=== PATIENT | female | born 1995 | race Caucasian/White ===

== ENCOUNTER 2019-09-17 09:14 | Day surgery (SDC) | payer OTHER, SELFPAY ==
[2019-08-26 09:38] VITALS: BMI 37.8
[2019-09-17 09:39] VITALS: BP 147/67; PULSE 86; RESP 16; TEMP 37.1; O2SAT 100; BMI 39.6
[2019-09-17 09:44] LABS: Internal QC Validated? YES +Cl - CLEAR BKGD; Pregnancy, Urine Negative Negative
[2019-09-17] MEDS: Lactated Ringers 1,000 ML 100 ML IV ×2 (09:48→11:01)
--- NOTE | 2019-09-17 10:08 | DCINST_ITS ---
Discharge Diet: No Restrictions - Toe-touch weightbearing right lower extremity, keep incision clean dry and intact and follow-up on Sunday for dressing change and brace adjustment with [facility]?call for appointment, keep brace locked in extension during ambulation and at night, may flex knee 0 to 30 degrees only for the first 2 weeks, call with concerns Discharge Activity: May Not Drive May shower in (days): 1 Ice area for (Minutes): 20 - Every hour while awake. Weight Bearing Status: Weight bearing as tolerated Keep extremity elevated above heart level: Operative Extremity Call your doctor if your incision/area has: Continuous Slow Oozing, Sudden Increased Bleeding, Increased Pain/ Swelling, Increased Redness, Foul Smelling Discharge Call your doctor if you observe: Fever of 101 or Higher, Coldness, Increased Pain, Numbness or Tingling, Change in Color, Calf discomfort Allergies/Adverse Reactions: Allergies No Known Allergies Allergy (Verified 09/17/19 09:38) Medications to take at Discharge fluticasone propionate 50 mcg/actuation nasal spray,suspension 1 spray INTRANASAL DAILY PRN 10/08/18 loratadine 10 mg tablet 10 mg PO DAILY 10/08/18 norethindrone acetate 1 mg-ethinyl estradiol 20 mcg tablet 1 tab PO DAILY 10/08/18 diclofenac potassium 25 mg capsule 2 tab PO PRN PRN 08/26/19 pantoprazole 40 mg tablet,delayed release 20 mg PO DAILY 08/26/19 Dicyclomine HCl 10 mg PO DAILY 09/10/19 Hydrocodone Bitart/Apap 5-325 [[place] 5MG-325MG] 1 - 2 tab PO Q6H PRN PRN 5 Days #60 tab 09/17/19 The following prescriptions were given: Hydrocodone Bitart/Apap 5-325 [[place] 5MG-325MG] 1 - 2 tab PO Q6H PRN PRN 5 Days #60 tab PRN Reason: Pain Transmission Status: Received by [facility] Primary Care Physician: Abdulkadir Reyes MD [Primary Care Provider] - Test Results: Test results from this visit will be discussed in further detail at your follow- up appointment, if applicable. Please Follow Up With: Fernanda Chung, - [phone]
--- NOTE | 2019-09-17 10:09 | PCM.HP.BLA ---
History and Physical I have re-examined the patient. There are no clinical changes since date of exam. Addendum entered and electronically signed by Fernanda Chung DO 08/26/19 12:49: Please note did discuss COVID risks with patient and patient elected to proceed with surgery. Also discussed the fact that I have not been tested for COVID and there is always a risk that I am carrying the virus asymptomatically without knowing. Assessment & Plan Problems 1. Tear of lateral meniscus of right knee, current, unspecified tear type, subsequent encounter S83.281D 2. 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 Fernanda Chung DO Spoke with the patient about the surgery procedure and recovery. Spoke with her about the difference in recovery with a mensicus repair vs mensicectomy. Reviewed the pre-operative plans with the patient. Risks and benefits of the procedure were fully explained, including but not limited to infection, neurovascular injury, continued pain, arthritis, stiffness, need for further surgery, re-injury, DVT, PE, general risks of anesthesia, and loss of limb or life. The patient understands all the risks and does wish to proceed with written consent. Follow up for her 2 week post op appt or sooner if pain, swelling, numbness or associated symptoms, or concerns develop. All questions answered. Patient in agreement of plan. Intake Intake Visit Reasons: Right knee Is patient in pain?: Yes Allergies No Known Allergies Allergy (Verified 08/26/19 09:43) Medications fluticasone propionate 50 mcg/actuation nasal spray,suspension 1 spray INTRANASAL DAILY 10/08/18 [History Confirmed 10/08/18] loratadine 10 mg tablet 10 mg PO DAILY 10/08/18 [History Confirmed 10/08/18] norethindrone acetate 1 mg-ethinyl estradiol 20 mcg tablet 1 tab PO DAILY 10/08/18 [History Confirmed 10/08/18] diclofenac potassium 25 mg capsule 25 mg PO BID 08/26/19 [History Confirmed 08/26/19] pantoprazole 40 mg tablet,delayed release 40 mg PO DAILY 08/26/19 [History Confirmed 08/26/19] [facility] Medical History (Updated 10/08/18 @ 08:35 by Georgina Barba) Heart murmur (Chronic) Broken arm (Resolved) umbilical stump removal (Resolved) Surgical History (Updated 10/08/18 @ 08:35 by Georgina Barba) H/O adenoidectomy (Resolved) History of tonsillectomy (Resolved) HPI Right knee: Details: Parts of this documentation were recorded by a scribe, this documentation accurately reflects the service provided and the decisions made by me, Dr. Fernanda Chung, DO 08/26/19 0967. JESENIA MARCH is a 24 year old F here today for right knee. Patient notes that she has increased right knee pain. Patient notes that she has been walking more frequently. She denies any recent injury. Patient complains of pain over her lateral knee and over her anterior knee. She has popping into her knee. She denies any locking. Patient denies any instability. She has increased pain with prolonged flexion, or squatting. She has a knee brace which is helpful. Patient had an MRI on 08/28/18 which is here for review. She would like to discuss her options with surgery. ROS [facility] Reports joint pain, Reports joint swelling, Reports limited joint movement Skin/Breast Reports system reviewed and no additional complaints, except as docu Neuro Yes system reviewed and no additional complaints, except as docu Ortho Exam Right Knee Skin/Wound: Yes CDI, Yes swelling Examination: Yes Lat jt line tenderness, Yes Pain with flexion Assessment & Plan Problems 1. Tear of lateral meniscus of right knee, current, unspecified tear type, subsequent encounter S83.219D 2. 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 Spoke with her about the difference in recovery with a mensicus repair vs mensicectomy. Reviewed the pre-operative plans with the patient. Risks and benefits of the procedure were fully explained, including but not limited to infection, neurovascular injury, continued pain, arthritis, stiffness, need for further surgery, re-injury, DVT, PE, general risks of anesthesia, and loss of limb or life. The patient understands all the risks and does wish to proceed with written consent. Follow up for her 2 week post op appt or sooner if pain, swelling, numbness or associated symptoms, or concerns develop. All questions answered. Patient in agreement of plan. 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
--- NOTE | 2019-09-17 10:10 | PCM.OPRPT ---
Report of Operation Date of Procedure: 09/17/19 Pre-Operative Diagnosis: right knee lateral meniscus tear Post-Operative Diagnosis: same Surgery/Procedure Performed:: lee, lateral meniscus repair and lateral meniscectomy document management analyst: Esvin Romero Type of Anesthesia:: General Anesthesiologist: Chase Oneill Specimen's removed: tt-26 mins Estimated Blood Loss (mL): min Fluids Replaced: 1000ml lr Description of Procedure: Preoperative note Patient is a 24-year-old female continued right knee pain and locking and instability. MRI confirms lateral meniscus tear. Risk benefits and alternatives surgery discussed with patient. Risk include but not limited to blood loss, blood clot, infection, neurovascular, failure procedure, loss of life and loss of limb. Patient is aware would like proceed with right knee arthroscopy repair as indicated. We also discussed risk associated with control and DVT risks patient has not been on her control for the last 3 months as patient was planning on surgical intervention. Discussed with mom that patient should wait to restart her control for at least 6 weeks postop If we do the repair. Operative note Patient seen and examined preoperative holding area. Right knee was marked. Patient brought to the operating room placed supine on the operating table. Signed, anesthesia, antibiotics were administered. The right leg was prepped and draped in usual sterile fashion with a tourniquet around her upper thigh. All bony prominences well-padded SCDs placed on her contralateral lower extremity. We then marked out our incisions for portal placement. Timeout was performed. We then elevated exsanguinated the leg and tourniquet was raised her pressure of 275 torr. We then created a anterolateral portal with an 11 blade. We began our diagnostic arthroscopy. Patellofemoral joint was unremarkable moved to the medial joint line. Created an anteromedial portal under direct visualization. There were no loose bodies in the lateral medial gutters. We then inserted a probe the medial meniscus was intact and stable probing. The ACL and PCL were present within the notch. The lateral side of the joint she had of split tear a small fissure tear in the body of her lateral meniscus but upon probing she actually had an unstable posterior horn tear and when the fluid was taken out of the wound fluid was let out of the joint there was actually bleeding at the posterior horn of the lateral meniscus confirming a capsular tear as well as quite unstable she also had a rent tear fissure tear excuse me in the mid body of the tibial plateau there were no unstable loose cartilage pieces however. We did take images of this for further documentation. We then placed 3 FasT-Fix reverse curved meniscal repair all inside suture devices across the repair 2 on the undersurface and one on the superior aspect and then reinserted our probe and we had a good repair. The vertical radial tear in the mid body was gently debrided back with combination of a shaver and a basket to a stable rim as well. We then performed a microfracture in the notch. We confirmed blood from the microfracture. The knee was irrigated with copious muscle sterile saline the portals were closed with interrupted 4 nylon stitches. Sterile dressings were applied. Brace was applied locked in extension at night and during ambulation and 0-30 during flexion. Patient taught procedure well no complication transferred recovery room stable condition Postoperative note Toe-touch weightbearing right leg Follow-up on Sunday with [facility] for dressing change and brace adjustment Call with increased pain numbness tingling or further issues arise Pharmacy has prescriptions Discussed with mom, patient will remain off of her control for the next 6 weeks, patient has JACQUELIN stockings on those should be worn as much as possible for the first 5 to 7 days We will give pictures in 2 weeks Dragon disclaimer This note was generated with [employer] dictation software. It may contain incorrect words, spelling, and punctuation that were not noted in checking the note before signing.
[2019-09-17] MEDS: Cefazolin 2 GM in 0.9% Normal Saline 100 ML IV (10:15)
[2019-09-17] MEDS: Mupirocin Ointment 22gm Tube 1 APPLIC (10:40)
[2019-09-17 11:22] VITALS: BP 133/64; BP 146/67; PULSE 75; RESP 16; TEMP 37.2; O2SAT 100
[2019-09-17 11:30] VITALS: BP 123/75; BP 146/67; PULSE 75; RESP 16; O2SAT 100
[2019-09-17 11:45] VITALS: BP 128/77; BP 146/67; PULSE 73; RESP 16; O2SAT 100
[2019-09-17 12:00] VITALS: BP 125/72; BP 146/67; PULSE 76; RESP 16; TEMP 36.8; O2SAT 100
[2019-09-17] MEDS: HYDROcodone Bitartrate/Apap 5/325 Tablet PO (12:45)
[2019-09-17 13:10] VITALS: BP 124/73; BP 146/67; PULSE 70; RESP 20; TEMP 36.4; O2SAT 97
== END 2019-09-17 13:15 | disposition home or self-care (01) ==
LOC: SDC 09:19 → AC 09:19
PROVIDERS: Anesthesiology; PCP Family Medicine; Referring Provider Orthopaedic Surgery; Visit Provider Orthopaedic Surgery
PROC: (CPT 29882; principal; 2019-09-17 10:20)
DX: S83.281A Other tear of lateral meniscus, current injury, right knee, initial encounter (principal); M67.51 Plica syndrome, right knee; Z11.59 Encounter for screening for other viral diseases; K21.9 Gastro-esophageal reflux disease without esophagitis; Z79.899 Other long term (current) drug therapy; X58.XXXA Exposure to other specified factors, initial encounter; Y93.89 Activity, other specified; Y92.89 Other specified places as the place of occurrence of the external cause; Y99.8 Other external cause status
CPT/HCPCS: 01400; 29881; 81025; 87635; G2023; J7120; J2405; U0003

== ENCOUNTER 2019-10-08 16:00 | Outpatient (RCR) | payer OTHER, SELFPAY ==
[2019-09-30 09:50] VITALS: BMI 39.6
--- NOTE | 2020-01-07 11:31 | HP.PT.NRP ---
JESENIA PEACE JOY MARCH was seen in my office for initial evaluation on 10/03/19. The following Plan of Care was established for this patient: Initial Frequency: 1-2 visits Initial Duration: over next few weeks This patient was last seen in our office 10/08/19. Pertinent comments regarding their Physical therapy will appear below: Pt was going back to school and find a therapist at school. [facility] PT At this point I will be discontinuing this patient from physical therapy. I would be happy to see this patient again in the future if found appropriate by the physician. Thank you! Isis Rodriguez, MPT
== END 2019-10-08 19:00 | disposition home or self-care (01) ==
LOC: PT 16:00
PROVIDERS: PCP Family Medicine; Referring Provider Orthopaedic Surgery; Visit Provider Orthopaedic Surgery
DX: Z98.890 Other specified postprocedural states (principal)
CPT/HCPCS: 97110; 97161

== ENCOUNTER → 2019-10-17 10:59 | Outpatient (CLI) | payer OTHER, SELFPAY ==
[2019-09-30 09:50] VITALS: BMI 39.6
--- NOTE | 2019-10-17 11:00 | VDLE_ITS ---
Reason For Study: Pain RIGHT LEFT GSV is normal. CFV is compressible, spontaneous, phasic, CFV is compressible, spontaneous, phasic, competent, and demonstrates normal competent and demonstrates normal augmentation. augmentation. FV is compressible, spontaneous, phasic, competent and demonstrates normal augmentation. POP V is compressible, spontaneous, phasic, competent and demonstrates normal augmentation. PTV is compressible. RT PerV is compressible. Acute deep vein thrombosis is noted in the right soleus vein and distal T/P Trunk. Procedure Exam performed in department. A preliminary report was called and/or faxed to [facility]. Pt started on Rx. Interpretation Summary Acute deep venous thrombosis right soleus vein and distal right tibioperoneal trunk. More proximal right lower extremity deep venous structures are patent and compressible Patent and compressible right great saphenous vein Patent and compressible left common femoral vein Ordering Physician: Fernanda Chung Referring Physician: Abdulkadir Reyes Performed By: Yun Velasquez RVT and Student
== END ==
PROVIDERS: PCP Family Medicine; Referring Provider Orthopaedic Surgery; Visit Provider Orthopaedic Surgery
DX: M79.661 Pain in right lower leg (principal)
CPT/HCPCS: 93971

== ENCOUNTER → 2020-03-23 09:33 | Outpatient (CLI) | payer OTHER, SELFPAY ==
[2019-10-27 08:19] VITALS: BMI 39.6
--- NOTE | 2020-03-23 09:35 | VDLE_ITS ---
Reason For Study: Hx of bloodclots RIGHT GSV is normal. CFV is compressible, spontaneous, phasic, competent and demonstrates normal augmentation. FV is compressible, spontaneous, phasic, competent and demonstrates normal augmentation. POP V is compressible, spontaneous, phasic, competent and demonstrates normal augmentation. T/P Trunk is compressible. PTV is compressible. RT PerV is compressible. Distal T/P Trunk is compressible. Right SoleusV is partially compressible as compared to 10/17/2019. Procedure This is a venous duplex using B-mode, color flow and spectral Doppler. Exam performed in department. Improvement compared to 10/17/2019. A preliminary report was called and/or faxed to [facility]. Interpretation Summary Chronic deep venous thrombosis right soleus vein with improvement since October 17, 2019 No evidence for more proximal right lower extremity deep venous thrombosis Patent and compressible right great saphenous vein Ordering Physician: Fernanda Chung Referring Physician: Abdulkadir Reyes Performed By: Yun Velasquez RVT
== END ==
PROVIDERS: PCP Family Medicine; Referring Provider Orthopaedic Surgery; Visit Provider Orthopaedic Surgery
DX: Z86.718 Personal history of other venous thrombosis and embolism (principal)
CPT/HCPCS: 93971